=== PATIENT | female | born 1990 | race Hispanic/Latino ===

== ENCOUNTER 2017-06-12 07:28 | Emergency (ER) | payer SELFPAY ==
[2017-06-12] MEDS ORDERED: Dexamethasone 4 MG TAB ONE (08:56)
[2017-06-12] MEDS ORDERED: Ibuprofen 800 MG TAB ONE (08:56)
[2017-06-12] MEDS ORDERED: Bicillin LA 1.2 MILLION UNITS/2 ML SYRINGE ONE (08:56)
== END 2017-06-12 09:25 | disposition home or self-care (01) ==
LOC: ERS 07:28
DX: R07.0 Pain in throat (principal)
CPT/HCPCS: 96372; J0561; J8540

== ENCOUNTER 2017-07-23 06:14 | Emergency (ER) | payer SELFPAY ==
[2017-07-23] MEDS ORDERED: Acetaminophen 500 MG TAB ONE (08:13)
[2017-07-23] MEDS ORDERED: Ibuprofen 800 MG TAB ONE (08:13)
--- NOTE | 2017-07-23 08:33 | RAD ---
CHEST PA AND LATERAL: History: 26-year-old female with history of fever. Comparison: 02-25-09 FINDINGS: Heart size is normal. The lungs are clear. IMPRESSION: No acute intrathoracic disease. Stable from prior study. POS: [facility]
== END 2017-07-23 08:30 | disposition home or self-care (01) ==
LOC: ERS 06:14
DX: B34.9 Viral infection, unspecified (principal)
CPT/HCPCS: 71046